=== PATIENT | female | born 1935 | race Hispanic/Latino ===

== ENCOUNTER → 2020-11-28 | Outpatient (CLI) | payer MEDICARE | END | disposition home or self-care (01) | LOC: OIH 13:38 | PROVIDERS: ATTEND Internal Medicine | DX: R07.81 Pleurodynia (principal); R14.0 Abdominal distension (gaseous) | CPT/HCPCS: 71110 ==

== ENCOUNTER → 2020-12-14 | Outpatient (CLI) | payer MEDICARE | END | disposition home or self-care (01) | LOC: OIH 13:23 | PROVIDERS: ATTEND Internal Medicine | DX: M85.88 Other specified disorders of bone density and structure, other site (principal); M54.16 Radiculopathy, lumbar region; M54.14 Radiculopathy, thoracic region; R07.81 Pleurodynia | CPT/HCPCS: 71100; 72070; 72100; 73502 ==

== ENCOUNTER 2022-11-21 09:12 | Emergency (ER) | payer MEDICARE ==
[~2022-11-21] VITALS: Ht 160 cm; Wt 47.6 kg
[2022-11-21 10:15] LABS: APPEARANCE,URINE CLEAR (CLEAR); BILIRUBIN,URINE NEGATIVE (NEGATIVE); COLOR,URINE LIGHT-YELLOW (YELLOW); GLUCOSE, URINE (UA) NEGATIVE (NEGATIVE); KETONES,URINE NEGATIVE (NEGATIVE); LEUKOCYTE ESTERASE ,URINE NEGATIVE Leu/uL (NEGATIVE); NITRATE,URINE NEGATIVE (NEGATIVE); OCCULT BLOOD,URINE SMALL (NEGATIVE); PROTEIN,URINE 10 mg/dL (NEGATIVE); UROBILINOGEN,URINE 0.2 mg/dL (0.2-1.0)
[2022-11-21 10:27] LABS: MUCUS,URINE RARE LPF (None Seen); RBC,URINE 26-50 /HPF (0-1)
[2022-11-21] MEDS ORDERED: ACETAMINOPHEN 500 MG TABLET PO ONE (13:30)
[2022-11-21 16:27] VITALS: BP 125/70
[2022-11-21] MEDS ORDERED: MOLN200C PO (16:52)
== END 2022-11-21 18:14 | disposition home or self-care (01) ==
LOC: EDH 09:12
DX: U07.1 COVID-19 (principal); W18.39XA Other fall on same level, initial encounter; B34.9 Viral infection, unspecified; S72.05 Unspecified fracture of head of femur; Y93.E1 Activity, personal bathing and showering; Y92.89 Other specified places as the place of occurrence of the external cause; Y99.8 Other external cause status
CPT/HCPCS: 99285; 70450; 87635; 87880; 87804 ×2; 72125; 81001; 73620; 73502; 73562; C9803